=== PATIENT | female | born 1940 | race Caucasian/White ===

== ENCOUNTER → 2017-06-18 | Outpatient (CLI) | payer OTHER ==
[~2017-06-18] MED LIST: DUONEB 2.5-0.5 M3 ML INH; HYDROCHLOROTHIA50 MG PO; LEVAQUIN 500 M500 M2 PO; PREDNISONE 10 M10 MG PO; PRINIVIL20 MG PO; PROAIR HFA8.5 GM INH; PROTONIX40 M1 PO; SYMBICORT160 MCG/4. INH; VENTOLIN HFA 1818 GM INH
== END ==
LOC: M.RAD 12:27
DX: J44.9 Chronic obstructive pulmonary disease, unspecified (principal); Z20.828 Contact with and (suspected) exposure to other viral communicable diseases

== ENCOUNTER 2018-06-18 02:43 | Inpatient (IN) | payer OTHER ==
[~2018-06-18] VITALS: Ht 157.5 cm; Wt 62.1 kg
[2018-06-18 02:48] VITALS: BP 191/100
[2018-06-18 03:10] LABS: ABSOLUTE EOSINOPHILS 0.1 thou/uL (0.0-0.7); ABSOLUTE LYMPHOCYTES 1.5 thou/uL (0.8-5.3); ABSOLUTE MONOCYTES 0.6 thou/uL (0.0-1.2); ABSOLUTE NEUTROPHILS 3.7 thou/uL (1.6-8.1); BASOPHILS 0.8 %; EOSINOPHILS 1.7 %; HEMATOCRIT 39.2 % (37.0-47.0); LYMPHOCYTES 24.8 %; MCH 31.8 pg (26.0-34.0); MCHC 33.3 g/dL (28.0-37.0); MCV 95.7 fL (80.0-100.0); MONOCYTES 9.7 %; MPV 7.6 fl. (7.2-11.1); NUCLEATED RBCS 0 /100WBC; PLATELET COUNT* 213 thou/uL (150-400); RBC 4.09 mil/uL (4.20-5.00); RDW-CV 13.1 % (10.5-14.5); WBC 5.8 thou/uL (4.0-11.0)
[2018-06-18 03:14] LABS: ANION GAP 5 mmol/L (7-16); BUN 16 mg/dL (7-18); CALCIUM 9.1 mg/dL (8.5-10.1); CHLORIDE 103 mmol/L (98-107); CO2 32 mmol/L (21-32); CREATININE 0.6 mg/dL (0.6-1.3); GLUCOSE 103 mg/dL (70-99); POTASSIUM 4.1 mmol/L (3.5-5.1); SODIUM 140 mmol/L (136-145)
[2018-06-18 03:20] LABS: APTT 25.3 Seconds (25.0-31.3); INR 0.9; PROTIME 9.7 Seconds (9.20-11.50)
[2018-06-18 03:26] LABS: ALBUMIN 3.4 g/dL (3.4-5.0); ALKALINE PHOSPHATASE 54 U/L (46-116); SGOT 27 U/L (15-37); SGPT 35 U/L (30-65); TOTAL BILIRUBIN 0.3 mg/dL (<0.1-1.0); TOTAL PROTEIN 6.6 g/dL (6.4-8.2); TROPONIN-I LEVEL <0.06 ng/mL (<0.06)
[2018-06-18 06:20] VITALS: BP 126/77
[2018-06-18 06:57] VITALS: BP 164/85
[2018-06-18 07:40] VITALS: BP 157/85
[2018-06-18 11:43] VITALS: BP 134/82
[2018-06-18] MEDS ORDERED: CLONIDINE0.1 PO (12:29)
[2018-06-18 12:48] VITALS: BP 134/82
--- NOTE | 2018-06-19 11:05 | CON ---
[address] [address] CONSULTATION Name: CHELSEY ARAUJO Room: [address]#: [id number] Admission: 06/18/18 Attend Phys: Warner Sewell MD Discharge: 06/18/18 Date of : 44 Report #: [id number] THIS REPORT FOR: //name// CC: Warner Lee TYPE OF REPORT: Cardiology consultation. HISTORY OF PRESENT ILLNESS: I was asked by Dr. Trujillo to see this 77-year-old white female in Cardiology consultation for evaluation and treatment of hypertensive urgency that actually has resolved as well as a brief run of about 20 beats of PSVT that was asymptomatic. This lady does have chronic obstructive pulmonary disease and requires 2 liters of oxygen daily. She came to the ER last night because her blood pressure was elevated in the 200/100 range. Normally, she is in the 130/80 range. She does have chronic essential hypertension that is treated with lisinopril 30 mg daily. She awakened from sleep at about midnight last night with a feeling of pressure in her head and dizziness. It was continuous for about 3 hours until her elevated blood pressure was treated by apparently IV hydralazine 10 mg. That drug brought her pressure down fairly promptly and she felt fine then. She has not had any further high blood pressure. She did not have chest pain or anginal symptoms. She did not have shortness of breath. She did have some mild nausea and some diaphoresis. Her EKG showed normal sinus rhythm, heart rate of 72, otherwise it was unremarkable. After she had been here for a few hours, she did have a short run of SVT of about 20 beats that started and stopped spontaneously. She has felt well other than being fatigued from lack of sleep. She does have chronic dyspnea on exertion but not shortness of breath at rest, orthopnea or PND. She has not had chest pains. She has not had syncope. She does not smoke but did smoke in the past. She does not have high cholesterol, diabetes or high blood pressure. She has not had a family history of heart trouble and she has not had kidney trouble. She has not had CVAs or TIAs or claudication. PAST MEDICAL HISTORY: As described above. ALLERGIES: She has no known allergies. MEDICATIONS: Include p.r.n. albuterol, Symbicort, DuoNeb twice a day and lisinopril 20 mg daily. FAMILY HISTORY: Remarkable for her father having a stroke and her mother had heart disease. There has been no family history of sudden . SOCIAL HISTORY: She drinks 1-2 drinks 5 days a week, does not smoke and does not use illegal drugs. PHYSICAL EXAMINATION: GENERAL: She presents as a well-developed, well-nourished [place], [place] [address] CONSULTATION Name: CHELSEY ARAUJO Room: [address]#: [id number] Admission: 06/18/18 Attend Phys: Warner Sewell MD Discharge: 06/18/18 Date of : 44 Report #: [id number] acute distress. VITAL SIGNS: Pulse was 82 and regular, most recent blood pressure was 130/80, respirations were 18 and regular and temperature is 97.7. HEENT: Her head was atraumatic. Eyes clear. NECK: Supple. There is no jugular venous distention or hepatojugular reflux. Thyroid is not enlarged. There is no adenopathy. SKIN: Warm and dry. Mucous membranes are moist. LUNGS: Clear to auscultation and percussion. HEART: Revealed normal first and second heart sound. There is soft S4. There is no S3. There are no murmurs, rubs, thrills, heaves or gallops. PMI is nondisplaced. ABDOMEN: Soft, flat and nontender. No palpable masses. No organomegaly. EXTREMITIES: Reveal no cyanosis, clubbing or edema. NEUROLOGICAL: The patient mentated normally, talked normally, moved all extremities normally. RADIOLOGICAL DATA: Chest x-ray showed chronic lung changes. Head CT showed hkdy-qd-esotjfhd cerebral atrophy. There were no acute changes on either study. LABORATORY DATA: Troponin was less than 0.06. IMPRESSION: 1. Hypertensive urgency that has resolved. 2. Short run of asymptomatic paroxysmal supraventricular tachycardia. 3. Chronic obstructive pulmonary disease that is oxygen dependent. RECOMMENDATIONS: She is to check her blood pressures at home and continue her current lisinopril dose of 20 mg daily. She is to take p.r.n. clonidine for blood pressure greater than 170. I would not treat her PSVT given that is asymptomatic and brief and in the acute setting of stress. She will follow up with one of my associates in the office. Thank you very much for asking me to see the patient. If there are any questions, please feel free to contact me. <ELECTRONICALLY SIGNED> By: Carolina Leyva MD, [facility] 06/19/18 1105 [id number]. Tk Leyva MD, FACC /nt
--- NOTE | 2018-06-19 11:14 | EKG ---
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: AP : 1940 Requested By: Stacia Helms Order Number: [id number] MD: Brent Suarez Measurements Intervals [place] Rate: 72 P: 86 TX: 178 QRS: 1 QRSD: 82 T: 71 QT: 392 QTc: 430 Interpretive Statements Sinus rhythm Compared to ECG 08/08/2015 19:24:02 Sinus tachycardia no longer present Incomplete right bundle-branch block no longer present Electronically Signed On 06-19-2018 11:14:36 [employer]TER[employer] MANAGER by Brent Suarez [email or web address] <ELECTRONICALLY SIGNED> By: Brent Suarez MD, [facility] 06/19/18 1114 [id number] Brent Suarez MD, [facility] /EPI
== END 2018-06-18 14:45 | disposition home or self-care (01) | DRG 305 ==
LOC: M.ERS 02:43 → M.2W 05:46 → M.TBA-ER 05:46 → M.2W 06:21
PROVIDERS: Personal Emergency Response Attendant; ADMIT Internal Medicine
DX: I16.0 Hypertensive urgency (principal); I10 Essential (primary) hypertension; J44.9 Chronic obstructive pulmonary disease, unspecified; Z90.710 Acquired absence of both cervix and uterus; Z86.010 Personal history of colon polyps; Z87.891 Personal history of nicotine dependence; Z82.3 Family history of stroke; Z82.49 Family history of ischemic heart disease and other diseases of the circulatory system; Z99.81 Dependence on supplemental oxygen

== ENCOUNTER → 2018-12-27 | Outpatient (CLI) | payer OTHER ==
[~2018-12-27] MED LIST changes: +CLONIDINE0.1 PO
== END ==
LOC: M.RAD 10:17
DX: Z12.31 Encounter for screening mammogram for malignant neoplasm of breast (principal)

== ENCOUNTER → 2019-02-22 | Outpatient (CLI) | payer OTHER | LOC: M.RAD 13:09 | DX: M85.89 Other specified disorders of bone density and structure, multiple sites (principal) ==